=== PATIENT | female | born 1970 | race Caucasian/White ===

== ENCOUNTER 2021-02-06 06:21 | Day surgery (SDC) | payer OTHER ==
[~2021-02-06 06:21] MED LIST: METHYLPREDNISOLONE PO; PRENATAL1 TAB
== END 2021-02-06 15:25 | disposition home or self-care (01) ==
LOC: CIR.AMB 06:21
PROVIDERS: ATTEND Obstetrics & Gynecology Maternal & Fetal Medicine
DX: N84.0 Polyp of corpus uteri (principal); Z20.822 Contact with and (suspected) exposure to COVID-19

== ENCOUNTER 2023-12-02 09:42 | Inpatient (IN) | payer OTHER ==
[~2023-12-02] VITALS: Ht 157.5 cm; Wt 59.0 kg
[2023-12-02] MEDS ORDERED: CIPROFLOXACIN IN 5 % DEXTROSE 200 ML IV SCH ×2 (10:53→21:00)
[2023-12-02] MEDS ORDERED: MEPERIDINE HCL/PF 25 MG/ML VIAL IM PRN (11:00)
[2023-12-02] MEDS ORDERED: PROMETHAZINE HCL 25 MG/ML AMPUL IM PRN (11:00)
[2023-12-02] MEDS ORDERED: 0.9 % SODIUM CHLORIDE 1,000 ML IV SCH (11:00)
[2023-12-02] MEDS ORDERED: CIPROFLOXACIN IN 5 % DEXTROSE 400 MG/200 ML PIGGYBAG IV NR (11:30)
[2023-12-02 11:47] LABS: HEMATOCRIT 34.4 % (36.0-45.00); HEMOGLOBIN 11.9 g/dL (12.0-15.00); MEAN CELL VOLUME 89.1 fL (80.00-100.00); MEAN CORPUSCULAR HGB CONC 34.7 g/dl (32.0-36.0); PLATELET COUNT 343 K/uL (150-450); RED BLOOD COUNT 3.86 M/uL (4.00-6.00); RED CELL DISTRIBUTION WIDTH 14.1 % (11.5-14.5)
[2023-12-02 12:11] LABS: INR 1.07; PARTIAL THROMBOPLASTIN TIME 34.3 SECONDS (22.0-34.0); PROTHROMBIN TIME 11.2 SECONDS (9.0-11.5)
[2023-12-02 12:18] LABS: BILIRUBIN TOTAL 0.31 mg/dL (0.3-1.2); CALCIUM 9.1 mg/dL (8.5-10.1); CREATININE SERUM 0.72 mg/dL (0.55-1.02); GFR 84.1; GLOBULINA 4.8 G/DL (2.4-3.5); POTASSIUM 3.32 mEq/L (3.5-5.1); TOTAL PROTEIN 7.8 gm/dL (6.4-8.2)
[2023-12-02 12:35] LABS: URINE APPEARANCE Clear; URINE BILIRRUBIN Negative (NEGATIVE); URINE BLOOD Trace; URINE COLOR Yellow; URINE GLUCOSE Negative (NEGATIVE); URINE LEUKOCYTE Moderate; URINE NITRATE Negative; URINE PROTEIN Trace (NEGATIVE); URINE UROBILINOGEN 0.2 E.U./dl
[2023-12-02 12:39] LABS: URINE BACTERIA 85.6 uL (0.0-1933); URINE EPITHELIAL CELLS 24.8 uL (0.0-38.8); URINE RBC 11.7 uL (0.0-20.8); URINE WBC 263.8 uL (0.0-23.2)
[2023-12-02] MEDS ORDERED: IOVERSOL 320 MG/ML - 50 ML VIAL IV ONE (15:15)
== END 2023-12-03 11:17 | disposition home or self-care (01) | DRG 660 ==
LOC: ER 09:43 → SURG 12:06 → SEC-K 12:06 → O/R 14:29 → SURG 15:25
PROVIDERS: General Practice; ADMIT Urology; ATTEND Urology
PROC: 0T778DZ Dilation of Left Ureter with Intraluminal Device, Via Natural or Artificial Opening Endoscopic (ICD-10-PCS; principal; 2023-12-02 14:30)
DX: N20.1 Calculus of ureter (principal); N39.0 Urinary tract infection, site not specified; Z20.822 Contact with and (suspected) exposure to COVID-19